=== PATIENT | male | born 1990 | race Hispanic/Latino ===

== ENCOUNTER 2020-05-13 01:31 | Emergency (ER) | payer BC ==
[~2020-05-13] VITALS: Ht 172.7 cm; Wt 98.9 kg
[2020-05-13] MEDS ORDERED: ASPIRIN 325 MG TAB PO ONE (02:30)
[2020-05-13] MEDS ORDERED: ACETAMINOPHEN 325 MG TAB ONE ×2 (03:05→03:47)
[2020-05-13] MEDS ORDERED: ACETAMINOPHEN 325 MG TAB PO ONE (03:45)
[2020-05-13] MEDS ORDERED: ASPIRIN 325 MG TAB ONE (03:47)
[2020-05-13 05:39] VITALS: BP 114/66
== END 2020-05-13 05:03 | disposition home or self-care (01) ==
LOC: FSED 02:30
DX: R07.9 Chest pain, unspecified (principal)
CPT/HCPCS: 71046; 80053; 84484; 85025; 93005; 99283